=== PATIENT | male | born 1970 | race Caucasian/White ===

== ENCOUNTER 2018-10-23 12:36 | Emergency (ER) | payer OTHER ==
[2018-10-23] MEDS ORDERED: KETOROLAC 30 MG/ML INJ ONE (13:55)
--- NOTE | 2018-10-23 15:19 | ER ---
Nurse's Notes [facility] Name: Gildardo Perkins Age: 48 yrs Sex: Male : 1970 Arrival Date: 10/23/2018 Time: 12:39 Bed 25 Private MD: None, None Diagnosis: Pain in left thigh Presentation: 10/23 12:50 Presenting complaint: Patient states: LLE SCIATICA PATTERN PAIN. bp 12:50 Transition of care: patient was not received from another setting of care. Onset of bp symptoms is unknown. Risk Assessment: Do you want to hurt yourself or someone else? Patient reports no desire to harm self or others. Initial Sepsis Screen: Does the patient meet any 2 criteria? No. Patient's initial sepsis screen is negative. Does the patient have a suspected source of infection? No. Patient's initial sepsis screen is negative. Care prior to arrival: None. 12:50 Method Of Arrival: Wheelchair bp 12:50 Acuity: MAINE 4 bp Historical: - Allergies: 12:52 No Known Allergies; bp - Home Meds: 12:52 meloxicam oral oral [Active]; bp - PMHx: 12:52 Arthritis; bp - Immunization history:: Adult Immunizations up to date. - Social history:: Smoking status: Patient/guardian denies using tobacco. - Ebola Screening: : No symptoms or risks identified at this time. Vital Signs: 12:52 BP 138 / 81; Pulse 88; Resp 16; Temp 97.6; Pulse Ox 96% ; Weight 84.37 kg; Height 5 ft. bp (152.40 cm); 12:52 Body Mass Index 36.33 (84.37 kg, 152.40 cm) bp ED Course: 12:39 Patient arrived in ED. dp 12:39 None, None is Private Physician. dp 12:50 Triage completed. bp 12:53 Arm band placed on. bp 13:16 Jr Thakkar MD is Attending Physician. gs 13:27 Clarice Caballero RN is Primary Nurse. iw Administered Medications: 13:43 Drug: TORadol 30 mg Route: IM; Site: left gluteus; ae4 Outcome: 13:53 Discharge ordered by . gs 14:04 Patient left the ED. iw Signatures: Clarice Caballero RN RN iw ThakkarJr MD MD gs Peltier, Brian, RN RN bp Freedom De Andrea, RN RN ae4
--- NOTE | 2018-10-23 15:19 | EDPHYS ---
Physician Documentation [facility] Name: Gildardo Perkins Age: 48 yrs Sex: Male : 1970 Arrival Date: 10/23/2018 Time: 12:39 Bed 25 Private MD: None, None ED Physician Jr Thakkar HPI: 10/23 13:48 This 48 yrs old Male presents to ER via Wheelchair with complaints of Leg gs Pain. 13:48 The patient presents with an injury, pain. The complaints affect the lateral aspect of gs left thigh. Context: resulted from twisting of the extremity. Onset: The symptoms/episode began/occurred acutely, today. Modifying factors: the symptoms are aggravated by movement, weight bearing. Associated signs and symptoms: Pertinent negatives numbness, weakness. Severity of symptoms: At their worst the symptoms were moderate, in the emergency department the symptoms are unchanged. The patient has experienced similar episodes in the past, a few times. Historical: - Allergies: 12:52 No Known Allergies; bp - Home Meds: 12:52 meloxicam oral oral [Active]; bp - PMHx: 12:52 Arthritis; bp - Immunization history:: Adult Immunizations up to date. - Social history:: Smoking status: Patient/guardian denies using tobacco. - Ebola Screening: : No symptoms or risks identified at this time. ROS: 13:48 All other systems are negative. gs Exam: 13:48 Head/Face: Normocephalic, atraumatic. Eyes: Pupils equal round and reactive to light, gs extra-ocular motions intact. Lids and lashes normal. Conjunctiva and sclera are non-icteric and not injected. Cornea within normal limits. Periorbital areas with no swelling, redness, or edema. ENT: Nares patent. No nasal discharge, no septal abnormalities noted. Tympanic membranes are normal and external auditory canals are clear. Oropharynx with no redness, swelling, or masses, exudates, or evidence of obstruction, uvula midline. Mucous membranes moist. Neck: Trachea midline, no thyromegaly or masses palpated, and no cervical lymphadenopathy. Supple, full range of motion without nuchal rigidity, or vertebral point tenderness. No Meningismus. Chest/axilla: Normal chest wall appearance and motion. Nontender with no deformity. No lesions are appreciated. Cardiovascular: Regular rate and rhythm with a normal S1 and S2. No gallops, murmurs, or rubs. Normal PMI, no JVD. No pulse deficits. Respiratory: Lungs have equal breath sounds bilaterally, clear to auscultation and percussion. No rales, rhonchi or wheezes noted. No increased work of breathing, no retractions or nasal flaring. Abdomen/GI: Soft, non-tender, with normal bowel sounds. No distension or tympany. No guarding or rebound. No evidence of tenderness throughout. Back: No spinal tenderness. No costovertebral tenderness. Full range of motion. Skin: Warm, dry with normal turgor. Normal color with no rashes, no lesions, and no evidence of cellulitis. Neuro: Awake and alert, GCS 15, oriented to person, place, time, and situation. Cranial nerves II-XII grossly intact. Motor strength 5/5 in all extremities. Sensory grossly intact. Cerebellar exam normal. Normal gait. 13:48 Constitutional: The patient appears alert, awake. 13:48 Musculoskeletal/extremity: ROM: limited active range of motion due to pain, in the lateral aspect of left thigh and left knee, Pulses: are normal with no appreciated deficits, Sensation intact. Joints: the left knee displays swelling, tenderness, chronic. Vital Signs: 12:52 BP 138 / 81; Pulse 88; Resp 16; Temp 97.6; Pulse Ox 96% ; Weight 84.37 kg; Height 5 ft. bp (152.40 cm); 12:52 Body Mass Index 36.33 (84.37 kg, 152.40 cm) bp MDM: 13:30 Patient medically screened. gs 13:48 Differential diagnosis: tendonitis, strain,sprain. Data reviewed: vital signs, nurses gs notes. Counseling: I had a detailed discussion with the patient and/or guardian regarding: the historical points, exam findings, and any diagnostic results supporting the discharge/admit diagnosis, the need for outpatient follow up, a orthopedic surgeon, has appt next week. Response to treatment: the patient's symptoms have markedly improved after treatment. Administered Medications: 13:43 Drug: TORadol 30 mg Route: IM; Site: left gluteus; ae4 Disposition: 10/23/18 13:53 Discharged to Home. Impression: Pain in left thigh. - Condition is Stable. - Discharge Instructions: Musculoskeletal Pain. - Prescriptions for meloxicam 7.5 mg Oral tablet - take 1 tablet by ORAL route once daily As needed; 30 tablet. - Work release form, Medication Reconciliation Form, Thank You Letter, Antibiotic Education, Prescription Opioid Use form. - Follow up: Private Physician; When: 2 - 3 days; Reason: Re-evaluation by your physician. Signatures: Clarice Caballero RN RN iw Jr Thakkar MD MD Keegan Pan RN RN Karson Savage RN RN ae4 Corrections: (The following items were deleted from the chart) 14:04 13:53 10/23/2018 13:53 Discharged to Home. Impression: Pain in left thigh. Condition is iw Stable. Forms are Medication Reconciliation Form, Thank You Letter, Antibiotic Education, Prescription Opioid Use. Follow up: Private Physician; When: 2 - 3 days; Reason: Re-evaluation by your physician. gs
== END 2018-10-23 14:04 | disposition home or self-care (01) ==
LOC: ER 12:36
DX: M79.652 Pain in left thigh (principal)
CPT/HCPCS: 96372; 99282

== ENCOUNTER 2021-02-15 09:53 | Emergency (ER) | payer OTHER ==
--- NOTE | 2021-02-15 12:47 | ER ---
Nurse's Notes [facility] Name: Gildardo Perkins Age: 50 yrs Sex: Male : 1970 Arrival Date: 02/15/2021 Time: 09:56 Bed 12 Private MD: Diagnosis: Pain in left knee Presentation: 02/15 10:03 Chief complaint: Patient states: Hx of Osteoarthritis in Left knee and states Monday vg1 02/13/21 was in so much pain was unable to walk or bear weight. States Monday02/14/21 Left knee 'felt a little better and bearable to walk on'. But woke up today and was unable to walk at all on Left extremity. States pain from Left hip that radiates down left leg. Denies numbing or tingling and denies any recent back injuries. Coronavirus screen: Vaccine status: Patient reports receiving the 2nd dose of the covid vaccine. Client denies travel out of the [place] in the last 14 days. Ebola Screen: Patient negative for fever greater than or equal to 101.5 degrees Fahrenheit, and additional compatible Ebola Virus Disease symptoms. Initial Sepsis Screen: Does the patient meet any 2 criteria? No. Patient's initial sepsis screen is negative. Does the patient have a suspected source of infection? No. Patient's initial sepsis screen is negative. Risk Assessment: Do you want to hurt yourself or someone else? Patient reports no desire to harm self or others. Onset of symptoms was February 13, 2021. 10:03 Method Of Arrival: Wheelchair vg1 10:03 Acuity: MAINE 4 vg1 Triage Assessment: 10:07 General: Appears in no apparent distress. uncomfortable, Behavior is calm, cooperative. vg1 Pain: Complains of pain in left leg. Historical: - Allergies: 10:07 No Known Allergies; vg1 - Home Meds: 10:07 nabumetone oral [Active]; vg1 - PMHx: 10:07 Arthritis; vg1 - PSHx: 10:07 None; vg1 - Immunization history:: Adult Immunizations up to date, Client reports receiving the 2nd dose of the Covid vaccine. - Social history:: Smoking status: Patient denies any tobacco usage or history of. Screenin:40 Abuse screen: Denies threats or abuse. Nutritional screening: No deficits noted. as6 Tuberculosis screening: No symptoms or risk factors identified. Fall Risk Gait- Impaired (20 pts.). Total Hood Fall Scale indicates No Risk (0-24 pts). Assessment: 10:37 General: Appears in no apparent distress. uncomfortable, Behavior is calm, cooperative. as6 Pain: Complains of pain in left leg Quality of pain is described as sharp, Pain began 2-3 days ago. Aggravated by weight bearing. Neuro: Level of Consciousness is awake, alert, obeys commands, Oriented to person, place, time, situation. Cardiovascular: Capillary refill < 3 seconds. Respiratory: Airway is patent Respiratory effort is even, unlabored, Respiratory pattern is regular, symmetrical. Musculoskeletal: Swelling present in left knee. Vital Signs: 10:03 BP 147 / 93; Pulse 72; Resp 16; Temp 98.7; Pulse Ox 99% ; Weight 92.53 kg; Height 5 ft. vg1 5 in. (165.10 cm); Pain 8/10; 11:30 BP 146 / 89; Pulse 61; Resp 18 S; Pulse Ox 100% on R/A; as6 10:03 Body Mass Index 33.95 (92.53 kg, 165.10 cm) vg1 ED Course: 09:56 Patient arrived in ED. mr 10:06 Triage completed. vg1 10:07 Arm band placed on. vg1 10:20 Tiffany Self FNP-C [facility]. kb 10:20 Leoncio Mott MD is Attending Physician. kb 10:41 Patient has correct armband on for positive identification. Bed in low position. Call as6 light in reach. Side rails up X 1. Pulse ox on. NIBP on. 11:56 Knee Left 3 View XRAY In Process Unspecified. EDMS 13:05 No provider procedures requiring assistance completed. Patient did not have IV access as6 during this emergency room visit. 13:07 Crutch training done. Kristofer wrap to left knee. as6 Administered Medications: No medications were administered Outcome: 12:47 Discharge ordered by . kb 13:05 Discharged to home with crutches, with significant other. as6 13:05 Condition: stable 13:05 Discharge instructions given to patient, Instructed on discharge instructions, follow up and referral plans. medication usage, crutch walking, Demonstrated understanding of instructions, follow-up care, medications, crutch walking, Prescriptions given X 1. 13:07 Patient left the ED. as6 Signatures: Dispatcher [employer] EDTiffany Bonds, DAYNE MANRIQUE-Lavonne Waltona Michelle cordero Paola Green, RN RN vg1 Maurizio Cates, ANTONIO RN as6 Corrections: (The following items were deleted from the chart) 10:07 10:07 Home Meds: meloxicam Oral; vg1 vg1 10:41 10:40 Fall Risk None identified. as6 as6
--- NOTE | 2021-02-15 12:47 | EDPHYS ---
Physician Documentation [facility] Name: Gildardo Perkins Age: 50 yrs Sex: Male : 1970 Arrival Date: 02/15/2021 Time: 09:56 Bed 12 Private MD: SHELLEY Physician Leoncio Mott HPI: 02/15 10:29 This 50 yrs old Male presents to ER via Wheelchair with complaints of Can't kb walk, Knee Pain. 10:29 The patient presents with decreased range of motion, pain, swelling. The complaints kb affect the left knee. Context: The problem was sustained at home, resulted from an unknown cause, possibly osteoarthritis, the patient can partially bear weight, must have assistance. Onset: The symptoms/episode began/occurred 5 day(s) ago. Modifying factors: The symptoms are alleviated by nothing. the symptoms are aggravated by movement, weight bearing, bending knee. Associated signs and symptoms: Pertinent positives: swelling, Pertinent negatives calf tenderness, fever, nausea, numbness, rash, tingling, vomiting, warmth, weakness. Treatment prior to arrival includes: no previous treatment. Severity of symptoms: At their worst the symptoms were moderate, in the emergency department the symptoms are unchanged. The patient has experienced similar episodes in the past, a few times. The patient has not recently seen a physician. Historical: - Allergies: 10:07 No Known Allergies; vg1 - Home Meds: 10:07 nabumetone oral [Active]; vg1 - PMHx: 10:07 Arthritis; vg1 - PSHx: 10:07 None; vg1 - Immunization history:: Adult Immunizations up to date, Client reports receiving the 2nd dose of the Covid vaccine. - Social history:: Smoking status: Patient denies any tobacco usage or history of. ROS: 10:28 Constitutional: Negative for fever, chills, and weight loss. kb 10:28 MS/extremity: Positive for decreased range of motion, pain, swelling, of the left knee. 10:28 All other systems are negative. Exam: 10:28 Constitutional: This is a well developed, well nourished patient who is awake, alert, kb and in no acute distress. Head/Face: Normocephalic, atraumatic. ENT: Moist Mucous membranes Respiratory: Respirations even and unlabored. No increased work of breathing, no retractions or nasal flaring. Skin: Warm, dry with normal turgor. Normal color. Neuro: Awake and alert, GCS 15, oriented to person, place, time, and situation. Moves all extremities. Normal gait. Psych: Awake, alert, with orientation to person, place and time. Behavior, mood, and affect are within normal limits. 10:28 Musculoskeletal/extremity: Extremities: grossly normal except: noted in the left leg: decreased ROM, pain, swelling, ROM: limited active range of motion due to pain, in the left knee, Circulation is intact in all extremities. Sensation intact. Weight bearing: can bear weight with assistance only. Vital Signs: 10:03 BP 147 / 93; Pulse 72; Resp 16; Temp 98.7; Pulse Ox 99% ; Weight 92.53 kg; Height 5 ft. vg1 5 in. (165.10 cm); Pain 8/10; 11:30 BP 146 / 89; Pulse 61; Resp 18 S; Pulse Ox 100% on R/A; as6 10:03 Body Mass Index 33.95 (92.53 kg, 165.10 cm) vg1 MDM: 10:21 Patient medically screened. kb 10:26 Data reviewed: vital signs, nurses notes. Data interpreted: Pulse oximetry: on room air kb is 99 %. Interpretation: normal. 12:46 Test interpretation: by ED physician or midlevel provider: plain radiologic studies, kb negative for acute finding. Counseling: I had a detailed discussion with the patient and/or guardian regarding: the historical points, exam findings, and any diagnostic results supporting the discharge/admit diagnosis, radiology results, the need for outpatient follow up, a orthopedic surgeon, to return to the emergency department if symptoms worsen or persist or if there are any questions or concerns that arise at home. 02/15 10:28 Order name: Knee Left 3 View XRAY kb 02/15 12:47 Order name: Kristofer Wrap; Complete Time: 13:08 kb 02/15 12:47 Order name: Crutches; Complete Time: 13:08 kb Administered Medications: No medications were administered Disposition: 02/16 11:34 Co-signature as Attending Physician, Leoncio Mott MD I agree with the assessment and dior plan of care. Disposition Summary: 02/15/21 12:47 Discharge Ordered Location: Home kb Condition: Stable kb Diagnosis - Pain in left knee kb Followup: kb - With: Emergency Department - When: As needed - Reason: Worsening of condition Followup: kb - With: Private Physician - When: 2 - 3 days - Reason: Recheck today's complaints, Continuance of care, Re-evaluation by your physician Discharge Instructions: - Discharge Summary Sheet kb - Arthritis, [id number] kb Forms: - Medication Reconciliation Form kb - Thank You Letter kb - Antibiotic Education kb - Prescription Opioid Use kb Prescriptions: - Diclofenac Sodium 75 mg Oral tablet,delayed release (DR/EC) - take 1 tablet by ORAL route 2 times per day As needed; 30 tablet; Refills: 0, kb Product Selection Permitted Signatures: Dispatcher [employer] EDMS Tiffany Self, LOOM CONTROL CHAIN BUILDER-C LOOM CONTROL CHAIN BUILDER-Leoncio Roldan MD MD cha Garcia, Victoria RN RN vg1 Corrections: (The following items were deleted from the chart) 02/15 10:07 10:07 Home Meds: meloxicam Oral; vg1 vg1
[2021-02-15 13:13] VITALS: TEMP 98.7
[2021-02-15 13:14] VITALS: BP 146/89; O2SAT 100
--- NOTE | 2021-02-15 13:37 | RAD REPORT ---
EXAM DESCRIPTION: RAD - Knee Left 3 View - 02/15/2021 11:56 am CLINICAL HISTORY: PAIN COMPARISON: Knee Left 3 View dated 04/24/2017 FINDINGS: No fracture, dislocation or periosteal reaction.No measurable joint effusion is detected. Medial compartment narrowing is present with medial compartment marginal spurs. These are not signifi cantly different from 2018. Minimal patella marginal spurring also identifiable and stable. No soft t issue abnormality. IMPRESSION: Knee joint degenerative change as detailed. No acute bone or joint finding. Clinical concerns for internal derangement or occult bony injury could be further assessed with MR im aging.
== END 2021-02-15 13:07 | disposition home or self-care (01) ==
LOC: ER 09:53
DX: M25.562 Pain in left knee (principal)
CPT/HCPCS: 99284

== ENCOUNTER 2024-05-28 01:27 | Emergency (ER) | payer OTHER ==
[2024-05-28] MEDS ORDERED: ACETAMINOPHEN 500 MG TAB ONE (02:17)
[2024-05-28] MEDS ORDERED: DIAZEPAM 5 MG TABLET ONE (02:18)
[2024-05-28] MEDS ORDERED: KETOROLAC 30 MG/ML INJ ONE (02:18)
[2024-05-28] MEDS ORDERED: LIDOCAINE 4% PATCH ONE (02:18)
--- NOTE | 2024-05-28 03:02 | EDPHYS ---
Physician Documentation [facility] Name: Gildardo Perkins Age: 54 yrs Sex: Male : 1970 Arrival Date: 05/28/2024 Time: 01:27 Bed 27 Private MD: ED Physician Cheng Castillo HPI: 05/28 01:48 This 54 yrs old Male presents to ER via Unassigned with complaints of ec2 Headache, Neck Pain. 01:48 Patient arrives today d/t concern for head and neck pain. Reports no specific trauma. ec2 reports pain ongoing for the past several days, worse w/ positional movement. has used topical medication for his pain which has improved his symptoms.. Historical: - PMHx: 01:55 Arthritis; Hypertensive disorder; br2 - Immunization history:: Adult Immunizations up to date. - Infectious Disease History:: Denies. - Social history:: Smoking status: Patient reports the use of cigarette tobacco products, smokes one pack cigarettes per day. Patient uses alcohol, occasionally. ROS: 01:49 Constitutional: as per hpi ec2 Exam: 01:49 Constitutional: GEN: NAD Head: atraumatic Eyes: EOMI Ears: External ears are ec2 normal. CV: regular rate LUNGS: no respiratory distress ABD: non-distended SKIN: no evidence of rashes MSK: reproducible muscular tenderness on palpation, range of motion limited to pain. Vital Signs: 01:52 BP 113 / 79; Pulse 71; Resp 18; Temp 97.2(TE); Pulse Ox 100% on R/A; Weight 96.16 kg; br2 Height 5 ft. 3 in. ; Pain 10/10; 01:52 Body Mass Index 37.55 (96.16 kg, 160.02 cm) br2 01:52 Pain Scale: Adult br2 MDM: 01:42 Medical Screening Exam initiated ec2 01:49 Data reviewed: vital signs, nurses notes. ED course: Patient arrives today for ec2 evaluation of head and neck pain. Examination is revealing for MSK findings as above. Will treat the patient's pain. Suspect muscular strain. Doubt fracture given lack of injury. Doubt other process such as meningitis given lack of systemic symptoms.. 03:01 ED course: On reassessment patient reports improvement in symptoms. Suspect muscular ec2 strain. Will discharge home. Return precautions given.. Administered Medications: : Drug: Diazepam PO 5 mg PO once Route: PO; jb4 03:00 Follow up: Response: No adverse reaction; Marked relief of symptoms jb4 : Drug: Ketorolac IM 30 mg IM once Route: IM; Site: right deltoid; jb4 03:00 Follow up: Response: No adverse reaction; Marked relief of symptoms jb4 : Drug: Acetaminophen PO 1000 mg PO once Route: PO; jb4 03:00 Follow up: Response: No adverse reaction; Marked relief of symptoms jb4 : Drug: Lidoderm Topical Patch 5 % (700 mg/patch) 1 patches Topical once; leave on for 12 jb4 hours; cover most painful area; may cut into smaller pieces Route: Topical; Site: affected area; 03:00 Follow up: Response: No adverse reaction; Marked relief of symptoms jb4 Disposition Summary: 05/28/24 03:01 Discharge Ordered Notes: Location: Home ec2 Condition: Stable ec2 Diagnosis - Sprain of joints and ligaments of unspecified parts of neck ec2 Followup: ec2 - With: Private Physician - When: - Reason: Re-evaluation by your physician Discharge Instructions: - Discharge Summary Sheet ec2 - Neck Contusion, [id number] ec2 Forms: - Medication Reconciliation Form ec2 - Antibiotic Education ec2 - Prescription Opioid Use ec2 - Patient Portal Instructions ec2 - Leadership Thank You Letter ec2 Prescriptions: - methocarbamol 500 mg Oral tablet - take 1 tablet ORAL route 4 times per day; 15 tablet; Refills: 0, Product ec2 Selection Permitted Signatures: Arsen Chu RN RN jb4 Cheng Castillo MD MD ec2 Luz Méndez RN RN br2
--- NOTE | 2024-05-28 03:02 | ER ---
Nurse's Notes [facility] Name: Gildardo Perkins Age: 54 yrs Sex: Male : 1970 Arrival Date: 05/28/2024 Time: 01:27 Bed 27 Private MD: Diagnosis: Sprain of joints and ligaments of unspecified parts of neck Presentation: 05/28 01:52 Chief complaint: Patient states: C/O NECK PAIIN FOR THE LAST WEEK, PAIN WHEN SHE TURNS br2 TO THE LEFT, DENIES INJURY. Coronavirus screen: Client denies travel out of the [place] in the last 14 days. Ebola Screen: Patient denies exposure to infectious person. Initial Sepsis Screen: Does the patient meet any 2 criteria? No. Patient's initial sepsis screen is negative. Does the patient have a suspected source of infection? No. Patient's initial sepsis screen is negative. Risk Assessment: Do you want to hurt yourself or someone else? Patient reports no desire to harm self or others. Onset of symptoms was May 21, 2024. 01:52 Method Of Arrival: Ambulatory br2 01:52 Acuity: MAINE 4 br2 Historical: - PMHx: 01:55 Arthritis; Hypertensive disorder; br2 - Immunization history:: Adult Immunizations up to date. - Infectious Disease History:: Denies. - Social history:: Smoking status: Patient reports the use of cigarette tobacco products, smokes one pack cigarettes per day. Patient uses alcohol, occasionally. Screenin:50 [facility] ED Fall Risk Assessment (Adult) History of falling in the last 3 months, jb4 including since admission No falls in past 3 months (0 pts) Confusion or Disorientation No (0 pts) Intoxicated or Sedated No (0 pts) Impaired Gait No (0 pts) Mobility Assist Device Used No (0 pt) Altered Elimination No (0 pt) Score/Fall Risk Level 0 - 2 = Low Risk Oriented to surroundings, Maintained a safe environment. Abuse screen: Denies threats or abuse. Nutritional screening: No deficits noted. Tuberculosis screening: No symptoms or risk factors identified. Assessment: 01:50 General: Appears in no apparent distress. comfortable, Behavior is calm, cooperative, jb4 appropriate for age. Pain: Complains of pain in right posterior aspect of neck and left posterior aspect of neck Pain does not radiate. Pain currently is 8 out of 10 on a pain scale. Neuro: Level of Consciousness is awake, alert, obeys commands, Oriented to person, place, time, situation. Cardiovascular: Patient's skin is warm and dry. Respiratory: Airway is patent Respiratory effort is even, unlabored, Respiratory pattern is regular, symmetrical. Derm: Skin is intact, Skin is pink, warm \T\ dry. 03:00 Reassessment: Patient appears in no apparent distress at this time. Patient and/or jb4 family updated on plan of care and expected duration. Pain level reassessed. Patient is alert, oriented x 3, equal unlabored respirations, skin warm/dry/pink. Vital Signs: 01:52 BP 113 / 79; Pulse 71; Resp 18; Temp 97.2(TE); Pulse Ox 100% on R/A; Weight 96.16 kg; br2 Height 5 ft. 3 in. ; Pain 10/10; 01:52 Body Mass Index 37.55 (96.16 kg, 160.02 cm) br2 01:52 Pain Scale: Adult br2 ED Course: 01:32 Patient arrived in ED. gm2 01:34 Cheng Castillo MD is Attending Physician. ec2 01:50 Patient has correct armband on for positive identification. Bed in low position. Call jb4 light in reach. Side rails up X 1. 01:50 No provider procedures requiring assistance completed. jb4 01:50 Patient did not have IV access during this emergency room visit. jb4 01:55 Triage completed. br2 04:00 Provided Education on: need for admit. jb4 Administered Medications: 02:26 Drug: Diazepam PO 5 mg PO once Route: PO; jb4 03:00 Follow up: Response: No adverse reaction; Marked relief of symptoms jb4 02:26 Drug: Ketorolac IM 30 mg IM once Route: IM; Site: right deltoid; jb4 03:00 Follow up: Response: No adverse reaction; Marked relief of symptoms jb4 02:26 Drug: Acetaminophen PO 1000 mg PO once Route: PO; jb4 03:00 Follow up: Response: No adverse reaction; Marked relief of symptoms jb4 02:26 Drug: Lidoderm Topical Patch 5 % (700 mg/patch) 1 patches Topical once; leave on for 12 jb4 hours; cover most painful area; may cut into smaller pieces Route: Topical; Site: affected area; 03:00 Follow up: Response: No adverse reaction; Marked relief of symptoms jb4 Outcome: 03:01 Discharge ordered by . [email or web address] 03:28 Discharged to home ambulatory, jb4 03:28 Condition: stable 03:28 Discharge instructions given to patient, Instructed on discharge instructions, follow up and referral plans. medication usage, Demonstrated understanding of instructions, follow-up care, medications, Prescriptions given X 1, 03:29 Patient left the ED. jb4 Signatures: Arsen Chu RN RN jb4 Cheng Castillo MD MD ec2 Sonya Escalera gm2 Luz Méndez RN RN br2 Corrections: (The following items were deleted from the chart) 04:33 00:00 [facility] ED Fall Risk Assessment (Adult) History of falling in the last 3 months, jb4 including since admission No falls in past 3 months (0 pts) Confusion or Disorientation No (0 pts) Intoxicated or Sedated No (0 pts) Impaired Gait No (0 pts) Mobility Assist Device Used No (0 pt) Altered Elimination No (0 pt) Score/Fall Risk Level 0 - 2 = Low Risk Oriented to surroundings, Maintained a safe environment, jb4 04:33 00:00 Abuse screen: Denies threats or abuse. jb4 jb4 04:33 00:00 Nutritional screening: No deficits noted. jb4 jb4 04:33 00:00 Tuberculosis screening: No symptoms or risk factors identified. jb4 jb4 :35 02:50 No provider procedures requiring assistance completed. jb4 jb4 :35 02:50 IV discontinued, intact, bleeding controlled, No redness/swelling at site. jb4 Pressure dressing applied, jb4 :35 03:10 Inserted saline lock: 20 gauge in left forearm, using aseptic technique. ,using jb4 aseptic technique. by orthopedic tech jb4
[2024-05-28 06:48] VITALS: BP 113/79; TEMP 97.2; O2SAT 100
== END 2024-05-28 03:29 | disposition home or self-care (01) ==
LOC: ER 01:27
DX: S13.8XXA Sprain of joints and ligaments of other parts of neck, initial encounter (principal); R51.9 Headache, unspecified; F17.210 Nicotine dependence, cigarettes, uncomplicated
CPT/HCPCS: J2003